=== PATIENT | male | born 1975 | race Caucasian/White ===

== ENCOUNTER 2021-01-31 15:12 | Emergency (ER) | payer SELFPAY ==
[~2021-01-31] VITALS: Ht 172.7 cm; Wt 144.7 kg
[2021-01-31 15:16] VITALS: BP 156/94
--- NOTE | 2021-01-31 15:23 | NUR ---
PT AMBULATED WITH EVEN AND STEADY GAIT TO BED 9. PT IS CURRENTLY GIVING URINE SAMPLE AT THIS TIME.
--- NOTE | 2021-01-31 15:28 | NUR ---
45 Y/O M BIB SPOUSE FROM HOME, C/O SKIN AROUND PENIS FEELS SWOLLEN AND PAINFUL FOR 3 WEEKS. PT STATES 6/10 "STINGING" SENSATION UPON "PULLING SKIN BACK." DENIES HEMATURIA, DYSURIA, URINARY RENTENTION. DENIES DISCHARGE, ODOR OR ANY PAIN UPON URINATION. PMH: DENIES NKA MED: IBUPROFEN 200MG
--- NOTE | 2021-01-31 15:29 | NUR ---
CURLY GALLARDO AT BEDSIDE EXAMINING PT
[2021-01-31] MEDS ORDERED: LOTC TP (16:06)
--- NOTE | 2021-01-31 16:13 | NUR ---
Patient discharged with v/s stable. Written and verbal after care instructions given and explained. Patient alert, oriented and verbalized understanding of instructions. Ambulatory with steady gait. All questions addressed prior to discharge. ID band removed. Patient advised to follow up with PMD. Rx of LOTRIMIN 1% given. Patient educated on indication of medication including possible reaction and side effects. Opportunity to ask questions provided and answered.
== END 2021-01-31 16:13 | disposition home or self-care (01) ==
LOC: MED 15:12
DX: N48.1 Balanitis (principal)
CPT/HCPCS: 81002; 99282